=== PATIENT | female | born 1990 | race Caucasian/White ===

== ENCOUNTER 2018-03-16 09:21 | Observation (INO) | payer OTHER ==
[~2018-03-16] VITALS: Ht 160 cm; Wt 81.7 kg
[~2018-03-16 09:21] MED LIST: AMOCLA875 PO; AMOX500 PO; AMOX50SU PO; BCP'S; CALCA500CH PO; FAMO20 PO; HYDACE5 PO; HYDACE7.5L PO; IBUP800 PO; LEVFLO500 PO; METO10 PO; NAPR500 PO; ONDA4 PO; OXYACE5T PO; Omeprazole20 M1; PENVK250 PO; PENVK500 PO; POTCHL20ER PO; PROC10 PO; PROM25 PO; PROM25S PR; Percocet 5-3251 EACH PO; RANI150 PO; RXCODGUASY PO; SULTRIDS PO; Verotin-Gr Cap1 EACH PO; [UNRECOGNIZED DRUG - REMARK]; [UNRECOGNIZED DRUG - REMARK]
[2018-03-16 11:12] LABS: BASOPHILS ABSOLUTE AUTO 0.04 K/mm3 (0.00-0.23); BASOPHILS PERCENT AUTO 0 % (0-2); EOSINOPHILS PERCENT AUTO 0 % (0-6); Hematocrit 37.8 % (33.0-51.0); IMMATURE GRAN ABSOLUTE AUTO 0.06 K/mm3 (0.00-0.10); IMMATURE GRAN PERCENT AUTO 1 % (0-1); LYMPHOCYTES ABSOLUTE AUTO 0.98 K/mm3 (0.84-5.20); LYMPHOCYTES PERCENT AUTO 8 % (21-46); MONOCYTES ABSOLUTE AUTO 0.36 K/mm3 (0.16-1.47); MONOCYTES PERCENT AUTO 3 % (4-13); Mean Corpuscular HGB 28.6 pg (26.0-34.0); Mean Corpuscular HGB Conc 34.4 g/dL (31.5-36.5); Mean Corpuscular Volume 83 fL (80-100); Mean Platelet Volume 11.1 fL (9.1-12.4); NEUTROPHILS ABSOLUTE AUTO 10.98 K/mm3 (1.96-9.15); NEUTROPHILS PERCENT AUTO 88 % (41-73); Platelet Count 293 K/mm3 (150-400); RDW Coefficient Variation 12.4 % (11.7-14.2); RDW Standard Deviation 37.2 fL (35.1-46.3); Red Blood Cell Count 4.54 M/mm3 (3.80-5.20); White Blood Cell Count 12.42 K/mm3 (4.00-11.30)
[2018-03-16 11:34] LABS: Alanine Aminotransfer (ALT/SGP 25 U/L (12-78); Albumin, Blood 4.3 g/dL (3.4-5.0); Albumin/Globulin Ratio 1.2 (0.8-1.8); Alk Phos 74 U/L (50-136); Anion Gap 12 mmol/L (6-16); Aspartate Aminotrans (AST/SGOT 18 U/L (12-37); Bilirubin, Total 0.5 mg/dL (0.1-1.0); Blood Urea Nitrogen 17 mg/dL (8-24); Bun/Creatinine Ratio 20.2 (12.0-20.0); CO2, Blood 22 mmol/L (21-32); Calcium, Blood 9.7 mg/dL (8.5-10.1); Chloride, Blood 106 mmol/L (98-108); Creatinine, Blood 0.84 mg/dL (0.40-1.00); Globulin, Blood 3.7 g/dL (2.2-4.0); Glomerular Filtration Rate >60 (60-); Glucose, Blood 210 mg/dL (70-99); Potassium, Blood 3.7 mmol/L (3.5-5.5); Sodium, Blood 140 mmol/L (136-145)
[2018-03-16] MEDS ORDERED: OMEPRAZOLE MAGN20 MG PO (16:20)
[2018-03-16] MEDS ORDERED: PROC25S PR (16:21)
== END 2018-03-16 17:17 | disposition home or self-care (01) ==
LOC: ER 09:21 → MEDS 09:22 → ER 13:00 → MEDS 13:00
PROVIDERS: Emergency Medicine
DX: K29.00 Acute gastritis without bleeding (principal); I10 Essential (primary) hypertension
CPT/HCPCS: 36415; 76705; 80053; 81000; 81025; 83690; 85025; 96361; 96374; 96375; 96376; 99285; C9113; G0378; J0780; J2405; J3010; J7030

== ENCOUNTER → 2019-02-27 | Outpatient (CLI) | payer OTHER ==
[~2019-02-27] MED LIST changes: +OMEPRAZOLE MAGN20 MG PO; +PROC25S PR
== END ==
LOC: LAB SHORT 16:22 → LAB EV 16:22
DX: R11.2 Nausea with vomiting, unspecified (principal)
CPT/HCPCS: 84702

== ENCOUNTER 2020-08-09 18:31 | Emergency (ER) | payer OTHER ==
[~2020-08-09] VITALS: Ht 160 cm; Wt 93.0 kg
[2020-08-09 19:01] LABS: BASOPHILS ABSOLUTE AUTO 0.01 K/mm3 (0.00-0.23); BASOPHILS PERCENT AUTO 0 % (0-2); EOSINOPHILS PERCENT AUTO 0 % (0-6); Hemoglobin 12.6 g/dL (11.5-16.0); IMMATURE GRAN ABSOLUTE AUTO 0.02 K/mm3 (0.00-0.10); IMMATURE GRAN PERCENT AUTO 0 % (0-1); LYMPHOCYTES ABSOLUTE AUTO 1.05 K/mm3 (0.84-5.20); LYMPHOCYTES PERCENT AUTO 13 % (21-46); MONOCYTES ABSOLUTE AUTO 0.36 K/mm3 (0.16-1.47); MONOCYTES PERCENT AUTO 4 % (4-13); Mean Corpuscular HGB 27.9 pg (26.0-34.0); Mean Corpuscular HGB Conc 33.2 g/dL (31.5-36.5); Mean Corpuscular Volume 84 fL (80-100); Mean Platelet Volume 10.5 fL (9.1-12.4); NEUTROPHILS PERCENT AUTO 83 % (41-73); Platelet Count 262 K/mm3 (150-400); RDW Coefficient Variation 12.5 % (11.7-14.2); RDW Standard Deviation 38.3 fL (35.1-46.3); Red Blood Cell Count 4.51 M/mm3 (3.80-5.20); White Blood Cell Count 8.34 K/mm3 (4.00-11.30)
[2020-08-09 19:18] LABS: Source, Urine Clean Catch
[2020-08-09 19:21] LABS: Appearance, Urine Hazy (Clear); Bilirubin, Urine Neg (Neg); Blood, Urine 1+ (Neg); Color, Urine Yellow (P-Yellow); Glucose Qualitative, Urine Neg (Neg); Ketones, Urine 4+ (Neg); Leukocyte Esterase, Urine 1+ (Neg); Nitrite, Urine Neg (Neg); Protein, Urine 2+ (Neg); Specific Gravity, Urine 1.025 (1.003-1.022); Urobilinogen, Urine NORM (Normal)
[2020-08-09 19:31] LABS: Bacteria Many /hpf; Squamous Epithelial Cells Mod /hpf (Few)
[2020-08-09 19:34] LABS: Alanine Aminotransfer (ALT/SGP 24 U/L (12-78); Albumin, Blood 3.9 g/dL (3.4-5.0); Alk Phos 48 U/L (50-136); Anion Gap 8 mmol/L (6-16); Aspartate Aminotrans (AST/SGOT 19 U/L (12-37); Bilirubin, Total 0.4 mg/dL (0.1-1.0); Blood Urea Nitrogen 11 mg/dL (8-24); Bun/Creatinine Ratio 14.3 (12.0-20.0); CO2, Blood 23 mmol/L (21-32); Calcium, Blood 9.7 mg/dL (8.5-10.1); Chloride, Blood 109 mmol/L (98-108); Creatinine, Blood 0.77 mg/dL (0.40-1.00); Glomerular Filtration Rate >60 (60-); Glucose, Blood 115 mg/dL (70-99); Potassium, Blood 3.8 mmol/L (3.5-5.5); Sodium, Blood 140 mmol/L (136-145); Total Protein, Blood 7.9 g/dL (6.4-8.2)
[2020-08-09] MEDS ORDERED: Zofran4 MG PO (20:48)
[2020-08-09] MEDS ORDERED: KEFLEX500 MG PO (20:48)
[2020-08-11] MEDS ORDERED: PROM25 PO (13:50)
[2020-08-11] MEDS ORDERED: DICY20 PO (13:50)
== END 2020-08-09 21:07 | disposition home or self-care (01) ==
LOC: ER 18:31
PROVIDERS: Emergency Medicine
DX: N39.0 Urinary tract infection, site not specified (principal); I10 Essential (primary) hypertension; F17.200 Nicotine dependence, unspecified, uncomplicated
CPT/HCPCS: 36415; 80053; 81001; 81025; 83690; 85025; 87086; 99284

== ENCOUNTER 2020-08-15 12:03 | Inpatient (IN) | payer OTHER ==
[~2020-08-15] VITALS: Ht 160 cm; Wt 87.5 kg
[~2020-08-15 12:03] MED LIST changes: +DICY20 PO; +KEFLEX500 MG PO; +Zofran4 MG PO
[2020-08-15 13:38] LABS: BASOPHILS ABSOLUTE AUTO 0.03 K/mm3 (0.00-0.23); BASOPHILS PERCENT AUTO 0 % (0-2); EOSINOPHILS ABSOLUTE AUTO 0.01 K/mm3 (0.00-0.68); EOSINOPHILS PERCENT AUTO 0 % (0-6); Hematocrit 39.4 % (33.0-51.0); IMMATURE GRAN ABSOLUTE AUTO 0.02 K/mm3 (0.00-0.10); IMMATURE GRAN PERCENT AUTO 0 % (0-1); LYMPHOCYTES PERCENT AUTO 13 % (21-46); MONOCYTES ABSOLUTE AUTO 0.38 K/mm3 (0.16-1.47); MONOCYTES PERCENT AUTO 4 % (4-13); Mean Corpuscular HGB 28.1 pg (26.0-34.0); Mean Corpuscular Volume 85 fL (80-100); Mean Platelet Volume 10.2 fL (9.1-12.4); NEUTROPHILS ABSOLUTE AUTO 7.31 K/mm3 (1.96-9.15); NEUTROPHILS PERCENT AUTO 82 % (41-73); Platelet Count 268 K/mm3 (150-400); RDW Coefficient Variation 12.5 % (11.7-14.2); RDW Standard Deviation 38.5 fL (35.1-46.3); Red Blood Cell Count 4.62 M/mm3 (3.80-5.20); White Blood Cell Count 8.95 K/mm3 (4.00-11.30)
[2020-08-15 13:57] LABS: Alanine Aminotransfer (ALT/SGP 42 U/L (12-78); Alk Phos 51 U/L (50-136); Anion Gap 7 mmol/L (6-16); Aspartate Aminotrans (AST/SGOT 23 U/L (12-37); Bilirubin, Total 0.5 mg/dL (0.1-1.0); Blood Urea Nitrogen 9 mg/dL (8-24); CO2, Blood 29 mmol/L (21-32); Calcium, Blood 9.4 mg/dL (8.5-10.1); Chloride, Blood 104 mmol/L (98-108); Glomerular Filtration Rate >60 (60-); Glucose, Blood 105 mg/dL (70-99); Potassium, Blood 3.6 mmol/L (3.5-5.5); Sodium, Blood 140 mmol/L (136-145)
[2020-08-15 19:49] LABS: Source, Urine Clean Catch
[2020-08-15 19:52] LABS: Appearance, Urine Hazy (Clear); Blood, Urine 5+ (Neg); Color, Urine Amber (P-Yellow); Glucose Qualitative, Urine Neg (Neg); Ketones, Urine 4+ (Neg); Leukocyte Esterase, Urine 2+ (Neg); Nitrite, Urine Neg (Neg); Protein, Urine 3+ (Neg); Urobilinogen, Urine 2+ (Normal)
[2020-08-15 20:07] LABS: Bilirubin, Urine 1+ (Neg)
[2020-08-15 20:08] LABS: Bacteria Many /hpf; Mucus Light (0-Heavy); Red Blood Cells, Urine TNTC /hpf (0-2); Squamous Epithelial Cells Mod /hpf (Few); White Blood Cells, Urine TNTC /hpf (0-5)
--- NOTE | 2020-08-16 03:44 | NUR ---
SHIFT SUMMARY: PT IS ALERT AND ORIENTED. PT IS CALM AND COOPERATIVE WITH CARE. PT CALLS APPROPRIATELY. PT IS INDEPENDENT IN THE ROOM. PT REPORTS PAIN AND NAUSEA, MEDICATING PER EMAR. PT REPORTS VOMITING IN THE ER, NONE SINCE ARRIVING ON THE FLOOR. PT DENIES SOB. BOWEL PREP FOR COLONOSCOPY SCHEDULED FOR 0700. PT SLEEPING AT THIS TIME. BED IN LOW POSITION, CALL LIGHT WITHIN REACH. WILL CONTINUE TO MONITOR.
[2020-08-16 04:47] LABS: BASOPHILS ABSOLUTE AUTO 0.05 K/mm3 (0.00-0.23); BASOPHILS PERCENT AUTO 1 % (0-2); EOSINOPHILS ABSOLUTE AUTO 0.03 K/mm3 (0.00-0.68); EOSINOPHILS PERCENT AUTO 0 % (0-6); Hematocrit 35.3 % (33.0-51.0); Hemoglobin 11.3 g/dL (11.5-16.0); IMMATURE GRAN ABSOLUTE AUTO 0.03 K/mm3 (0.00-0.10); IMMATURE GRAN PERCENT AUTO 0 % (0-1); LYMPHOCYTES ABSOLUTE AUTO 2.21 K/mm3 (0.84-5.20); LYMPHOCYTES PERCENT AUTO 24 % (21-46); MONOCYTES ABSOLUTE AUTO 0.62 K/mm3 (0.16-1.47); MONOCYTES PERCENT AUTO 7 % (4-13); Mean Corpuscular HGB 27.8 pg (26.0-34.0); Mean Corpuscular Volume 87 fL (80-100); Mean Platelet Volume 10.2 fL (9.1-12.4); NEUTROPHILS ABSOLUTE AUTO 6.17 K/mm3 (1.96-9.15); NEUTROPHILS PERCENT AUTO 68 % (41-73); Platelet Count 231 K/mm3 (150-400); RDW Coefficient Variation 12.6 % (11.7-14.2); RDW Standard Deviation 39.8 fL (35.1-46.3); Red Blood Cell Count 4.06 M/mm3 (3.80-5.20); White Blood Cell Count 9.11 K/mm3 (4.00-11.30)
[2020-08-16 05:06] LABS: Anion Gap 5 mmol/L (6-16); Blood Urea Nitrogen 10 mg/dL (8-24); Bun/Creatinine Ratio 12.7 (12.0-20.0); CO2, Blood 28 mmol/L (21-32); Calcium, Blood 8.4 mg/dL (8.5-10.1); Chloride, Blood 107 mmol/L (98-108); Creatinine, Blood 0.79 mg/dL (0.40-1.00); Glomerular Filtration Rate >60 (60-); Glucose, Blood 95 mg/dL (70-99); Potassium, Blood 3.6 mmol/L (3.5-5.5); Sodium, Blood 140 mmol/L (136-145)
--- NOTE | 2020-08-16 17:59 | NUR ---
PT TRANSFERED TO [facility] FROM [facility]. History, Chart, Medications and Allergies reviewed before start of procedure. Lungs clear T/O to Auscultation. Patient confirms NPO status and agrees with scheduled surgery. Pre-Op teaching done. Pt verbalizes understanding.
--- NOTE | 2020-08-16 18:26 | NUR ---
PATIENT OFF UNIT TO DAY SURGERY AT 1745. FTF REPORT GIVEN TO EMMA BELTRÁN.
--- NOTE | 2020-08-16 18:26 | NUR ---
SHIFT SUMMARY: HYPERTENSIVE 160-170/100'S, HR DIPS TO 45-50 WHILE SLEEPING; DR. GARZA AWARE. CONSTANT ABDOMINAL PAIN; MEDICATED PER EMAR WITH LITTLE EFFECT. ALSO HAVING CONSTANT NAUSEA WITH EMESIS X 1; MEDICATED PER EMAR. STOOL CLEAR YELLOW AFTER 1/2 BOTTLE OF GO LYTELY. DECLINED CLEAR LIQ DIET FOR BREAKFAST AND LUNCH. GAVE PT'S MOTHER UPDATE BY PHONE WITH HER PERMISSION.
--- NOTE | 2020-08-16 18:48 | NUR ---
08/16/20 1848 Fifi Hidalgo History, Chart, Medications and Allergies reviewed before start of procedure. PATIENT CONFIRMS NPO STATUS AND AGREES WITH SCHEDULED PROCEDURE. MONITOR INTACT WITH CONTINUOUS PULSE OXIMETRY AND INTERMITTENT BP. O2 VIA N/C INTACT THROUGHOUT SEDATION/PROCEDURE. 3-LEAD EKG REVIEWED WITH PHYSICIAN PRIOR TO START OF PROCEDURE. PATIENT DETERMINED TO BE ASA APPROPRIATE FOR PROPOFOL SEDATION PRIOR TO START OF PROCEDURE BY DR. FIELD.Bite Block Placed.
--- NOTE | 2020-08-16 21:52 | NUR ---
PT. RETURNED FROM ENDOSCOPY @2014. SITTING UP IN BED C/O PAIN AND NA. MEDICATED PER EMAR. WILL CONT TO MONITOR.
--- NOTE | 2020-08-17 04:49 | NUR ---
SHIFT SUMMARY- PT. HAD UPPER/LOWER ENDOSCOPY LAST NIGHT. ARRIVED TO UNIT WITH C/O NAUSEA AND ABD PAIN. PT. HAVING PERSISTANT NA AND ABD PAIN T/O THE NIGHT. HAS BEEN MEDICATED SEVERAL TIMES T/O THE SHIFT WITH MINIMAL RELIEF. PT. STATES NO VOMITING. UP TO BATHROOM INDEPENDENTLY. DRINKING WATER OCCASIONALLY, IV FLUIDS INFUSING. CALL LIGHT WITHIN REACH AND SIDE RAILS UPX2. WILL CONT TO MONITOR.
[2020-08-17 05:02] LABS: BASOPHILS ABSOLUTE AUTO 0.04 K/mm3 (0.00-0.23); BASOPHILS PERCENT AUTO 1 % (0-2); EOSINOPHILS ABSOLUTE AUTO 0.08 K/mm3 (0.00-0.68); EOSINOPHILS PERCENT AUTO 1 % (0-6); Hematocrit 37.1 % (33.0-51.0); IMMATURE GRAN ABSOLUTE AUTO 0.03 K/mm3 (0.00-0.10); IMMATURE GRAN PERCENT AUTO 0 % (0-1); LYMPHOCYTES ABSOLUTE AUTO 1.91 K/mm3 (0.84-5.20); LYMPHOCYTES PERCENT AUTO 26 % (21-46); MONOCYTES ABSOLUTE AUTO 0.44 K/mm3 (0.16-1.47); MONOCYTES PERCENT AUTO 6 % (4-13); Mean Corpuscular HGB 28.2 pg (26.0-34.0); Mean Corpuscular HGB Conc 32.3 g/dL (31.5-36.5); Mean Corpuscular Volume 87 fL (80-100); Mean Platelet Volume 10.2 fL (9.1-12.4); NEUTROPHILS ABSOLUTE AUTO 4.83 K/mm3 (1.96-9.15); NEUTROPHILS PERCENT AUTO 66 % (41-73); Platelet Count 218 K/mm3 (150-400); RDW Coefficient Variation 12.4 % (11.7-14.2); RDW Standard Deviation 39.8 fL (35.1-46.3); Red Blood Cell Count 4.25 M/mm3 (3.80-5.20); White Blood Cell Count 7.33 K/mm3 (4.00-11.30)
[2020-08-17 05:26] LABS: Albumin, Blood 3.3 g/dL (3.4-5.0); Anion Gap 5 mmol/L (6-16); Blood Urea Nitrogen 5 mg/dL (8-24); Bun/Creatinine Ratio 6.7 (12.0-20.0); CO2, Blood 25 mmol/L (21-32); Calcium, Blood 8.5 mg/dL (8.5-10.1); Chloride, Blood 108 mmol/L (98-108); Creatinine, Blood 0.75 mg/dL (0.40-1.00); Glomerular Filtration Rate >60 (60-); Glucose, Blood 92 mg/dL (70-99); Phosphorus, Blood 2.3 mg/dL (2.5-4.9); Potassium, Blood 4.1 mmol/L (3.5-5.5); Sodium, Blood 138 mmol/L (136-145)
[2020-08-17] MEDS ORDERED: ACET325 PO (12:10)
[2020-08-17] MEDS ORDERED: LORCET 5-325 M1 EACH PO (12:11)
[2020-08-17] MEDS ORDERED: IBUP600 PO (12:12)
[2020-08-17] MEDS ORDERED: NIFE90ER PO (12:14)
--- NOTE | 2020-08-17 12:30 | NUR ---
PATIENT D/C'D TO HOME. DC INSTRUCTIONS AND EDUCATION DISCUSSED WITH PATIENT AND COPY PROVIDED. RX MEDICATION FAXED TO [facility] AND HARD SCRIPT FOR NORCO GIVEN TO PATIENT. PATIENT DENIES ANY FURTHER QUESTIONS OR CONCERNS.
== END 2020-08-17 12:34 | disposition home or self-care (01) | DRG 387 ==
LOC: ER 12:03 → MEDS 12:04 → SURS 12:04 → MEDS 21:32
PROVIDERS: Emergency Medicine; Internal Medicine; Internal Medicine Gastroenterology; Nurse Practitioner Acute Care; ADMIT Family Medicine
PROC: 0DBB8ZX Excision of Ileum, Via Natural or Artificial Opening Endoscopic, Diagnostic (ICD-10-PCS; 2020-08-16)
PROC: 0DB98ZX Excision of Duodenum, Via Natural or Artificial Opening Endoscopic, Diagnostic (ICD-10-PCS; principal; 2020-08-16 16:30)
PROC: 0DB68ZX Excision of Stomach, Via Natural or Artificial Opening Endoscopic, Diagnostic (ICD-10-PCS; 2020-08-16 16:30)
DX: K50.00 Crohn's disease of small intestine without complications (principal); Z20.828 Contact with and (suspected) exposure to other viral communicable diseases; I10 Essential (primary) hypertension; F17.200 Nicotine dependence, unspecified, uncomplicated; Z79.899 Other long term (current) drug therapy; Z83.79 Family history of other diseases of the digestive system
CPT/HCPCS: 36415; 80048; 80053; 80069; 81001; 81025; 83690; 85025; 85651; 86140; 87086; 88305; 88342; 96361; 96372-59; 96374; 96375; 96376; 99285-25; G0378; J0500; J0780; J1170; J1630; J2060; J2250; J2405; J2550; J2704; J3480; J7120; U0003

== ENCOUNTER → 2020-08-18 | Outpatient (CLI) | payer OTHER ==
[~2020-08-18] MED LIST changes: +ACET325 PO; +IBUP600 PO; +LORCET 5-325 M1 EACH PO; +NIFE90ER PO
== END | disposition home or self-care (01) ==
LOC: LAB SHORT 19:04 → LAB 19:04
DX: R10.9 Unspecified abdominal pain (principal)
CPT/HCPCS: 84443

== ENCOUNTER → 2020-09-15 | Outpatient (CLI) | payer OTHER | LOC: LAB 14:07 → LAB SHORT 14:07 | DX: K52.9 Noninfective gastroenteritis and colitis, unspecified (principal) | CPT/HCPCS: 83993 ==

== ENCOUNTER → 2021-12-31 | Outpatient (CLI) | payer OTHER | END | disposition home or self-care (01) | LOC: LAB 14:05 → LAB SHORT 14:05 | DX: O09.893 Supervision of other high risk pregnancies, third trimester (principal) | CPT/HCPCS: 87081; 87150 ==

== ENCOUNTER 2022-01-14 03:57 | Inpatient (IN) | payer OTHER ==
[~2022-01-14] VITALS: Ht 162.6 cm; Wt 76.2 kg
[2022-01-14 04:20] LABS: BASOPHILS ABSOLUTE AUTO 0.02 K/mm3 (0.00-0.23); BASOPHILS PERCENT AUTO 0 % (0-2); EOSINOPHILS ABSOLUTE AUTO 0.04 K/mm3 (0.00-0.68); EOSINOPHILS PERCENT AUTO 1 % (0-6); Hematocrit 31.5 % (33.0-51.0); Hemoglobin 11.1 g/dL (11.5-16.0); IMMATURE GRAN ABSOLUTE AUTO 0.04 K/mm3 (0.00-0.10); IMMATURE GRAN PERCENT AUTO 1 % (0-1); LYMPHOCYTES ABSOLUTE AUTO 1.87 K/mm3 (0.84-5.20); LYMPHOCYTES PERCENT AUTO 34 % (21-46); MONOCYTES ABSOLUTE AUTO 0.41 K/mm3 (0.16-1.47); MONOCYTES PERCENT AUTO 7 % (4-13); Mean Corpuscular HGB 30.6 pg (26.0-34.0); Mean Corpuscular HGB Conc 35.2 g/dL (31.5-36.5); Mean Corpuscular Volume 87 fL (80-100); Mean Platelet Volume 9.8 fL (9.1-12.4); NEUTROPHILS ABSOLUTE AUTO 3.17 K/mm3 (1.96-9.15); NEUTROPHILS PERCENT AUTO 57 % (41-73); Platelet Count 250 K/mm3 (150-400); RDW Coefficient Variation 12.9 % (11.7-14.2); RDW Standard Deviation 40.2 fL (35.1-46.3); Red Blood Cell Count 3.63 M/mm3 (3.80-5.20); White Blood Cell Count 5.55 K/mm3 (4.00-11.30)
[2022-01-14] MEDS ORDERED: FERSU300 (04:34)
[2022-01-14] MEDS ORDERED: PRENATAL TABLE1 EAC2 (04:34)
--- NOTE | 2022-01-14 18:25 | NUR ---
pt does not believe that her legs are strong enough yet to stand, decision was made to use bedpan, bed bath and linen change and pt will call for assist when she is able to void the next time
--- NOTE | 2022-01-15 16:11 | NUR ---
Pt d/c'd home ambulatory to care of .
== END 2022-01-15 16:05 | disposition home or self-care (01) | DRG 807 ==
LOC: OBS 03:57 → BC 03:57 → OBS 04:04 → BC 04:05
PROVIDERS: ADMIT Family Medicine
PROC: 10E0XZZ Delivery of Products of Conception, External Approach (ICD-10-PCS; principal; 2022-01-14)
PROC: 3E0R3BZ Introduction of Anesthetic Agent into Spinal Canal, Percutaneous Approach (ICD-10-PCS; 2022-01-14)
PROC: 00HU33Z Insertion of Infusion Device into Spinal Canal, Percutaneous Approach (ICD-10-PCS; 2022-01-14)
DX: O42.02 Full-term premature rupture of membranes, onset of labor within 24 hours of rupture (principal); Z37.0 Single live birth; Z3A.38 38 weeks gestation of pregnancy; O69.81X0 Labor and delivery complicated by cord around neck, without compression, not applicable or unspecified; D50.9 Iron deficiency anemia, unspecified; O99.02 Anemia complicating childbirth; Z79.899 Other long term (current) drug therapy; Z86.16 Personal history of COVID-19; Z28.9 Immunization not carried out for unspecified reason; Z90.89 Acquired absence of other organs
CPT/HCPCS: 36415; 51702; 59025; 85025; 86850; 86900; 86901; A9270; J1885; J2001; J2210; J2405; J3010; J7120

== ENCOUNTER 2024-01-11 17:52 | Emergency (ER) | payer OTHER ==
[~2024-01-11] VITALS: Ht 165.1 cm; Wt 68.0 kg
[~2024-01-11 17:52] MED LIST changes: +COMPAZINE10 MG PO; +ESCI10 PO; +FERSU300; +ONDA4ODT MM; +PRENATAL TABLE1 EAC2; +PROM12.5S PR
[2024-01-11 18:54] LABS: Influenza A, PCR NEGATIVE (NEGATIVE); Influenza B, PCR NEGATIVE (NEGATIVE); Resp Syncytial Virus, PCR NEGATIVE (NEGATIVE); SARS-Cov-2 (COVID-19) PCR, MMC NEGATIVE (NEGATIVE)
[2024-01-11 19:40] VITALS: BP 154/88
[2024-01-11] MEDS ORDERED: Ondansetron 4 MG SoluTab SL ONE (20:15)
[2024-01-11] MEDS ORDERED: Ketorolac Tromethamine 15mg Vial IV ONE (20:40)
[2024-01-11] MEDS ORDERED: Acetaminophen 500 MG Tab PO ONE (20:45)
[2024-01-11] MEDS ORDERED: NS 1,000 ML IV SCH (20:45)
[2024-01-11] MEDS ORDERED: Ondansetron HCl 2 MG / ML 2ML Vial IV ONE (20:45)
[2024-01-11] MEDS ORDERED: Albuterol 2.5 MG/3 ML VIAL INH ONE (20:50)
[2024-01-11] MEDS ORDERED: Droperidol 5 mg/2 ml Vial IV ONE (21:25)
== END 2024-01-11 21:33 | disposition home or self-care (01) ==
LOC: ER 17:52
PROVIDERS: Student in an Organized Health Care Education/Training Program
DX: B34.9 Viral infection, unspecified (principal); I10 Essential (primary) hypertension
CPT/HCPCS: 0241U; 71046; 87430; 94640; 94664; 96374; 96375; 99283-25; A9270; J1790; J1885; J2405; J7030

== ENCOUNTER 2024-11-10 06:21 | Emergency (ER) | payer OTHER ==
[~2024-11-10] VITALS: Ht 165.1 cm; Wt 68.0 kg
[2024-11-10] MEDS ORDERED: Azithromycin 250 MG Tab PO ONE (07:05)
[2024-11-10] MEDS ORDERED: RX Prepack 6 Tabs Oxycodone 5mg UD ONE (07:05)
[2024-11-10] MEDS ORDERED: AZIT250 PO (07:10)
[2024-11-10 07:15] VITALS: BP 173/109
== END 2024-11-10 07:35 | disposition home or self-care (01) ==
LOC: ER 06:21
DX: H73.012 Bullous myringitis, left ear (principal); F17.200 Nicotine dependence, unspecified, uncomplicated; Z79.899 Other long term (current) drug therapy
CPT/HCPCS: 99282; A9270

== ENCOUNTER 2024-11-27 23:05 | Emergency (ER) | payer OTHER ==
[~2024-11-27] VITALS: Ht 162.6 cm; Wt 81.7 kg
[~2024-11-27 23:05] MED LIST changes: +AZIT250 PO
[2024-11-27 23:10] VITALS: BP 156/92
[2024-11-27] MEDS ORDERED: Cleocin HCl150 MG PO (23:17)
== END 2024-11-27 23:14 | disposition home or self-care (01) ==
LOC: ER 23:05
DX: L72.3 Sebaceous cyst (principal); I10 Essential (primary) hypertension; Z79.899 Other long term (current) drug therapy
CPT/HCPCS: 99282

== ENCOUNTER 2025-01-10 09:44 | Observation (INO) | payer OTHER ==
[~2025-01-10] VITALS: Ht 160 cm; Wt 67.8 kg
[2025-01-10] VITALS (26 sets, daily range): BP systolic 135–198; BP diastolic 85–120
[~2025-01-10 09:44] MED LIST changes: +Bupivacaine 0.5% HCl 5 MG/ML 30MLVIAL ONE; +CYCL10 PO; +CeFAZolin Sodium 2,000 MG VIAL ONE; +CeFAZolin Sodium 2,000 MG in NS 100 ML IV SCH; +Cleocin HCl150 MG PO; +LARIN FE PO; +Lactated Ringer's 1,000 ML IV SCH; +NORT10 PO; +SENNA LAXATIVE8.6 MG PO
[2025-01-10] MEDS ORDERED: FentaNYL Citrate 50 MCG/ML 2 ML Injection ONE ×2 (09:49→11:08)
[2025-01-10] MEDS ORDERED: propofoL 20 ML IV ONE ×2 (09:49→10:24)
--- NOTE | 2025-01-10 10:25 | NUR ---
FAINT EXP. RHONCHI NOTED TO ANTERIOR HOLGER LUNG. REPORTED THIS TO DR MASON. NO NEW ORDERS. PATIENT REPORTS FEELING WELL TODAY, BUT DID HAVE RECENT ILLNESS. PATIENT REMOVED EARINGS AND STORED IN LABELED PATIENT BELONGING BAG, WHICH WAS PLACED UNDER [facility].
[2025-01-10] MEDS ORDERED: Dexamethasone Sod Phos 10 MG/ML 1ML VIAL ONE (10:39)
[2025-01-10] MEDS ORDERED: Rocuronium Bromide 10 MG/ML 5ML Injection IV ONE (11:08)
[2025-01-10] MEDS ORDERED: Ondansetron HCl 2 MG / ML 2ML Vial ONE (11:26)
[2025-01-10] MEDS ORDERED: Sugammadex Sodium 200 MG/2ML SDV (100 MG/ML) ONE (11:26)
[2025-01-10] MEDS ORDERED: Ondansetron HCl 2 MG / ML 2ML Vial IV PRN (12:00)
[2025-01-10] MEDS ORDERED: Metoclopramide HCl 10 MG Tab PO PRN (12:00)
[2025-01-10] MEDS ORDERED: Naloxone HCl 0.4MG / ML 1ML Vial IV PRN (12:00)
[2025-01-10] MEDS ORDERED: DiphenhydrAMINE HCL 25 MG Cap PO PRN (12:05)
[2025-01-10] MEDS ORDERED: Lactated Ringer's 1,000 ML IV SCH (12:05)
[2025-01-10] MEDS ORDERED: HYDROmorphone HCl/Pf 1MG SYR IV PRN (12:05)
[2025-01-10] MEDS ORDERED: FLU VACC TS2024-25(6MOS UP)/PF 45 MCG/0.5 ML SYRINGE IM SCH (12:05)
[2025-01-10] MEDS ORDERED: Simethicone 80 MG Chew PO PRN (12:05)
[2025-01-10] MEDS ORDERED: Metoclopramide HCl 5MG / ML 2ML Vial IV PRN (12:05)
[2025-01-10] MEDS ORDERED: Acetaminophen 325 MG TABLET PO PRN (12:05)
[2025-01-10] MEDS ORDERED: Ondansetron 4 MG TAB PO PRN (12:10)
[2025-01-10] MEDS ORDERED: OxyCODONE HCL 5 MG TAB PO PRN (12:10)
[2025-01-10] MEDS ORDERED: Ketorolac Tromethamine 30mg Vial ONE (12:12)
[2025-01-10] MEDS ORDERED: Ketorolac Tromethamine 30mg Vial IV PRN (12:15)
[2025-01-10] MEDS ORDERED: HYDROmorphone HCl/Pf 1MG SYR ONE (12:29)
--- NOTE | 2025-01-10 13:30 | NUR ---
PT VOMITING SINCE ARRIVAL, FAN GIVEN FOR PT FEELING HOT,
--- NOTE | 2025-01-10 13:53 | NUR ---
DR ROA AWARE OF BLOOD PRESSURES BEING HIGH, REPORTS TO CONTINUE TO MONITOR AND SHE WILL BE DOWN AFTER HER CURRENT CASE. SHE IS ALSO AWARE THE PT IS NAUSEA/VOMITING AND HAS BEEN GIVEN MEDS, AND NOT DUE FOR PAIN MEDS
[2025-01-10] MEDS ORDERED: HydrALAZINE HCl 20 MG / ML 1ML Vial IV PRN (14:35)
[2025-01-10] MEDS ORDERED: Scopolamine Hydrobromide Patch TOP SCH (15:30)
--- NOTE | 2025-01-10 15:46 | NUR ---
Pt transfered to [facility] report given to HECTOR Lantigua
[2025-01-10] MEDS ORDERED: Prochlorperazine Edisylate 10 mg Vial IV PRN (16:25)
--- NOTE | 2025-01-10 17:32 | NUR ---
ASSUMED CARE FROM FAMILY RN. POST LAP HYSTER THIS AM. STERI STRIPS C/D/I. REPORTS ONGOING NAUSEA AND EMESIS. MEDICATED PER EMAR FOR PAIN AND NAUSEA. ICE CHIPS PROVIDED, UP TO BEDSIDE COMMODE WITH SBA AND WAS ABLE TO VOID. FAMILY AT BEDSIDE, VSS, WILL CONTINUE TO MOITOR AND TREAT UNTIL REPORT TO NOC SHIFT RN.
[2025-01-10] MEDS ORDERED: AmLODIPine Besylate 5 MG Tab PO SCH (23:00)
[2025-01-11] VITALS (8 sets, daily range): BP systolic 126–184; BP diastolic 67–108
--- NOTE | 2025-01-11 01:00 | NUR ---
REPORT RECEIVED FROM PAWEL (ADVANCE AGENT) AND PT T/F TO ROOM 310 AT 2320. PT ORIENTED TO NEW ROOM AND CALL SYSTEM. SHE'S A/OX4, SBA OOB AND KNOWS TO CALL FOR ASSIST PRN. UPON T/F SHE WAS HYPERTENSIVE (198/114), NAUSEOUS W/EMESIS AND C/O ABDO PAIN UPON. SHE WAS MEDICATED W/HYDRALAINE, REGLAN AND DILAUDID PRN. MANAGER DATA CENTER AND PEDIATRIC SPEECH THERAPIST ALERTED ME OF PLAN TO NOW T/F PT TO SURGICAL FLOOR FOR ONGOING CARE AND TREATMENT. REPORT PROVIDED TO AUGUSTO (PLY BANDER) AND PT T/F'D TO ROOM 224 AT 0055.
--- NOTE | 2025-01-11 01:10 | NUR ---
PT ARRIVED TO ROOM 224 FROM ROOM 310. PT ALERT, BP ELEVATED, HR SINUS 76 PER TELE MONITOR. PT CONT TO HAVE NAUSEA, MEDICATED PER EMAR UPON ARRIVAL TO FLOOR. INCISIONS CDI, ABD BINDER IN PLACE. PT REP SCANT VAGINAL BLEEDING. PT ORIENTED TO ROOM/CALL LIGHT. PARRISH SIPS OF WATER AND CLEAR SODA.
--- NOTE | 2025-01-11 01:28 | NUR ---
PT W/N/V-SMALL AMT CLEAR EMESIS. MEDICATED PER EMAR, IVF RESTARTED.
[2025-01-11] MEDS ORDERED: LORazepam 2 MG/ML 1ML Injection IV PRN (06:25)
--- NOTE | 2025-01-11 06:49 | NUR ---
DR ROA CALLED IN FOR UPDATE THIS AM. PT VS, AND ONGOING N/V REVIEWED W/MD. NEW ORDER FOR HOSPITALIST CONSULT FOR BP MGMT AND ATIVAN FOR NAUSEA.
--- NOTE | 2025-01-11 07:34 | NUR ---
POD 1 S/P LAVH. BP REMAINED ELEVATED DESPITE PRN MEDS. PT ASYMPTOMATIC, DR JANINA CONROY, HOSPITALIST IN THIS AM FOR CONSULT. HR SINUS 70'S. INCISIONS CDI, ABD SOFT TO PALP, ABD BINDER IN PLACE. PT HAVING SCANT VAGINAL BLEEDING, IS VOIDING URINE W/O DIFFICULTY. PT STRUGGLED W/N/V, MEDICATED PER EMAR W/MIN RELIEF, UNABLE TO PARRISH MUCH PO, IVF CONT. BEDSIDE REP GIVEN TO DAY RN.
[2025-01-11 09:43] LABS: Albumin, Blood 3.7 g/dL (3.4-5.0); Albumin/Globulin Ratio 1.1 (0.8-1.8); Bilirubin, Total 0.4 mg/dL (0.1-1.0); Bun/Creatinine Ratio 15.7 (12.0-20.0); Calcium, Blood 8.9 mg/dL (8.5-10.1); Creatinine, Blood 0.58 mg/dL (0.40-1.00); Globulin, Blood 3.5 g/dL (2.2-4.0); Potassium, Blood 3.4 mmol/L (3.5-5.5); Total Protein, Blood 7.2 g/dL (6.4-8.2)
[2025-01-11] MEDS ORDERED: Potassium Chloride 20 MEQ in NS 90 ML IV ONE (10:10)
[2025-01-11 10:33] LABS: CHOL/HDL RATIO 2.6; Cholesterol 171 mg/dL (50-200); HDL Cholesterol 65 mg/dL (>39); LDL/HDL RATIO 1.4; Low Density Lipoprotein Chol 93 mg/dL (0-110); Triglycerides 63 mg/dL (30-140); Very Low Density Lipoprot Chol 12 mg/dL (6-28)
[2025-01-11 10:39] LABS: Creatinine, Urine Random 44.7 mg/dL (27.00-270.00)
[2025-01-11 10:41] LABS: Microalbumin, Random Urine 48.7 mg/L (0.000-20.000)
[2025-01-11 10:42] LABS: Microalb/Creat Ratio UR, Rand 108.949 mg/g (0.000-30.000)
[2025-01-11] MEDS ORDERED: IBU800 M1 PO (10:46)
[2025-01-11] MEDS ORDERED: OXYC5 PO (10:47)
[2025-01-11] MEDS ORDERED: LARIN FE PO (10:48)
[2025-01-11] MEDS ORDERED: Magnesium Oxide 400 MG Tab PO SCH (14:00)
[2025-01-11] MEDS ORDERED: Polyethylene Glycol 3350 17 gm PO PRN (14:00)
[2025-01-11] MEDS ORDERED: Sennosides 8.6 MG Tab PO PRN (14:00)
[2025-01-11] MEDS ORDERED: Polyethylene Glycol 3350 17 gm PO ONE (14:00)
--- NOTE | 2025-01-11 16:17 | NUR ---
PT AOX4 AND HAS BEEN COOPERATIVE OF CARE. PT CONTINUES TO REPORT NAUSEA AND HAS BEEN TREATED PER EMAR. DR ROA CALLED REQUESTING PT TRY ORAL MEDS AND PT HAS TOLERATED SOME ORAL PAIN MEDICATION PER EMAR. PT DOES NOT SEEM IMPROVED. PT DOES APPEAR TO BE VERY DROWSY AND TIRED. PT HAS TAKEN MULTIPLE NAPS THROUGH THE DAY. PT IS ABLE TO MAKE NEEDS KNOWN CALL LIGHT IS IN REACH WILL CONTINUE TO MONITOR.
[2025-01-11] MEDS ORDERED: AmLODIPine Besylate 5 MG Tab PO SCH (21:00)
[2025-01-12] VITALS (10 sets, daily range): BP systolic 134–182; BP diastolic 78–128
--- NOTE | 2025-01-12 04:50 | NUR ---
HR TELE REPORTS PT HR TACHY IN 140s @ APPROX 0350. REPORTS MAX HR OF 153. PT REPORTS "FEELING LIKE MY HEART IS BEATING FAST." PT EDUCATED ON VALSALVA MANEUVER, PT REPORTS SOME RELIEF S/P DEMONSTRATING MANEUVER. MEDICATIONS PER EMAR REVIEWED R/T PT SYMPTOMS. PT HR INCREASED AFTER 20MG HYDRALAZINE DOSE ADMINISTRATION @ 0318. BP DECREASED AFTER ADMINISTRATION. 0450 DR RODRIGUEZ NOTIFIED OF PT INCREASED HR AFTER MED ADMINISTRATION. DR ADVISED TO MONITOR BP "CLOSELY." NO FURTHER ORDERS AT THIS TIME. PT CURRENT HR @111, SUSTAINING IN LOW 100s-110S.
--- NOTE | 2025-01-12 06:14 | NUR ---
HR ANCHOR TACKER REPORTS PT HR SUSTAINING @ 157. RN IN ROOM c PT. PT CURRENTLY VOMITING.
--- NOTE | 2025-01-12 06:40 | NUR ---
SHIFT SUMMARY POD 2 LAP HYSTR. VSS PER PREVIOUS NOTES, TELE CURRENTLY @ SINUS TACH 103. PT NAUSEAS T/O NIGHT, 1 EPISODE OF EMESIS THIS AM. PT REPORTS PAIN TO ABD, MEDICATED PER EMAR. LAP SITE x4 c WOUND GLUE C/D/I. ABD BINDER IN USE. VOIDING, NO DRAINAGE VISUALIZED ON MANUEL PADS. PT REPORTS NO PASSING OF FLATUS/BM. AMB IND-SBA IN ROOM. CALL LIGHT IN REACH, BED IN LOWEST POSITION, REPORT GIVEN TO DAY RN.
[2025-01-12 07:10] LABS: BASOPHILS ABSOLUTE AUTO 0.02 K/mm3 (0.00-0.23); BASOPHILS PERCENT AUTO 0 % (0-2); EOSINOPHILS PERCENT AUTO 0 % (0-6); Hematocrit 41.1 % (33.0-51.0); Hemoglobin 14.2 g/dL (11.5-16.0); IMMATURE GRAN ABSOLUTE AUTO 0.02 K/mm3 (0.00-0.10); IMMATURE GRAN PERCENT AUTO 0 % (0-1); LYMPHOCYTES ABSOLUTE AUTO 1.34 K/mm3 (0.84-5.20); LYMPHOCYTES PERCENT AUTO 18 % (21-46); MONOCYTES ABSOLUTE AUTO 0.63 K/mm3 (0.16-1.47); MONOCYTES PERCENT AUTO 8 % (4-13); Mean Corpuscular HGB 28.3 pg (26.0-34.0); Mean Corpuscular HGB Conc 34.5 g/dL (31.5-36.5); Mean Corpuscular Volume 82 fL (80-100); Mean Platelet Volume 9.6 fL (9.1-12.4); NEUTROPHILS ABSOLUTE AUTO 5.54 K/mm3 (1.96-9.15); NEUTROPHILS PERCENT AUTO 73 % (41-73); Platelet Count 240 K/mm3 (150-400); RDW Coefficient Variation 12.4 % (11.7-14.2); RDW Standard Deviation 37.2 fL (35.1-46.3); Red Blood Cell Count 5.01 M/mm3 (3.80-5.20); White Blood Cell Count 7.55 K/mm3 (4.00-11.30)
[2025-01-12 07:32] LABS: Albumin, Blood 3.6 g/dL (3.4-5.0); Bilirubin, Total 0.5 mg/dL (0.1-1.0); Bun/Creatinine Ratio 15.7 (12.0-20.0); Calcium, Blood 9.3 mg/dL (8.5-10.1); Creatinine, Blood 0.57 mg/dL (0.40-1.00); Globulin, Blood 3.5 g/dL (2.2-4.0); Total Protein, Blood 7.1 g/dL (6.4-8.2)
[2025-01-12] MEDS ORDERED: SIME80CH PO (08:50)
[2025-01-12] MEDS ORDERED: IBUP400 PO (08:51)
[2025-01-12] MEDS ORDERED: Potassium Chloride 20 MEQ in NS 90 ML IV SCH (09:00)
[2025-01-12] MEDS ORDERED: HydrALAZINE HCl 20 MG / ML 1ML Vial IV PRN (09:40)
[2025-01-12] MEDS ORDERED: Losartan Potassium 50 MG Tab PO SCH (10:00)
[2025-01-12] MEDS ORDERED: NS 250 ML IV PRN (10:45)
--- NOTE | 2025-01-12 11:48 | NUR ---
PT REPORTED TO PRIMARY RN THAT SHE TOOK 10.28 MG THC IN ONE "GUMMIE" APROX 6 HOURS AGO, NOW REQUESTING PAIN MEDICATION. MD NOTIFED, OK TO GIVE PT HER PRN PAIN MEDICATION.
[2025-01-12] MEDS ORDERED: AMLO5 PO (15:55)
[2025-01-12] MEDS ORDERED: MIRALAX17 GM PO (15:56)
[2025-01-12] MEDS ORDERED: MAGNESIUM OXID500 MG PO (15:56)
[2025-01-12] MEDS ORDERED: Potassium Chloride 10 Meq Tablet SA PO SCH (16:00)
--- NOTE | 2025-01-12 16:44 | NUR ---
DISCHARGE VSS, MEDS FAXED TO PHARMACY,IV TAKEN OUT INTACT. PATIENT TOLERATING PO. DENIES PAIIN AT THIS TIME. ALL BELONGINGS WITH PATIENT. PATIENT VERBILAZES AND SIGNS DC INSTRUCTIONS. LEAVES VIA PRIVATE VEHICLE.
[2025-01-12] MEDS ORDERED: Nortriptyline HCl 10 MG Cap PO SCH (21:00)
[2025-01-14 05:45] LABS: ALDOSTERONE 7.6 ng/dL; ALDOSTERONE/RENINACTIVITY CALC 2.1 ratio (<=25.0); RENIN ACTIVITY 3.6 ng/mL/hr
== END 2025-01-12 16:15 | disposition home or self-care (01) ==
LOC: ORSCMMR 09:44 → ORD 10:30 → ORSCMMR 10:30 → BC 13:15 → PCU 15:58 → SURS 23:20 → ORSCMMR 23:20 → SURS 01-12 16:15
PROVIDERS: Family Medicine; Registered Nurse; ADMIT Obstetrics & Gynecology
DX: N83.8 Other noninflammatory disorders of ovary, fallopian tube and broad ligament (principal); N94.6 Dysmenorrhea, unspecified; R23.4 Changes in skin texture; I10 Essential (primary) hypertension; G43.109 Migraine with aura, not intractable, without status migrainosus; E87.6 Hypokalemia; Z72.0 Tobacco use; Z79.899 Other long term (current) drug therapy; M54.16 Radiculopathy, lumbar region
CPT/HCPCS: 36415; 80053; 80061; 82043; 82088; 82570; 82947; 83735; 84244; 85025; 88307; 93005; 93010; 96374; A9270; G0378; J0360; J0690; J0780; J1100; J1171; J1885; J2060; J2405; J2704; J2765; J3010; J3480; J7050; J7120